=== PATIENT | female | born 1955 | race Two or more races ===

== ENCOUNTER → 2025-01-23 | Outpatient (CLI) | payer MEDICARE, MEDICAID, SELFPAY ==
--- NOTE | 2025-01-23 10:30 | XR_ITS ---
Examination: CT abdomen and pelvis without contrast. Coronal 3-D reconstructions. Sagittal 2-D reconstructions. Date and time of exam:January 23, 2025 1030 hours INDICATIONS: History renal cysts and urinary incontinence beginning 2018 CTDI: vol (mGy): 8.83 DLP: (mGycm): 451 Technique: Axial images of the abdomen have been obtained, 3 mm slice thickness Intravenous contrast material has not been administered. Low dose protocols were performed. One or more of the following dose reduction techniques were used; automated exposure control, adjustment of the mA and/or KV according to patient size, use of iterative reconstruction technique. Findings: 13 mm right lobe liver lesion No gallstones Spleen is not enlarged No pancreatic or adrenal mass 4.5 cm right renal cyst Severely scarred atrophic right kidney with multiple renal calculi 2 to 5 mm Bilateral lower pole renal cyst, 8.6 cm No hydronephrosis or ureteral calculi Aortic calcification no aneurysmal dilatation Normal appendix Colonic diverticulosis, no diverticulitis No bladder mass or bladder calculi Absent uterus IMPRESSION: Severely scarred atrophic right kidney with multiple renal calculi Bilateral renal cysts as
== END | disposition home or self-care (01) ==
PROVIDERS: PCP Surgery; Referring Provider Surgery; Visit Provider Surgery
DX: N26.1 Atrophy of kidney (terminal) (principal); N20.0 Calculus of kidney
CPT/HCPCS: 74176